=== PATIENT | female | born 1950 | race Caucasian/White ===

== ENCOUNTER → 2024-08-16 | Outpatient (CLI) | payer MEDICARE ==
--- NOTE | 2024-08-16 17:40 | HMCIMG ---
RIBS UNILAT 2V RT REASON: RIB PAIN TECHNIQUE: 4 views were obtained. FINDINGS: There is no evidence of fracture or dislocation. Underlying lung appears clear.. The soft tissues appear unremarkable. There is no evidence of a radiopaque foreign body. IMPRESSION: No acute findings.
== END | disposition home or self-care (01) ==
LOC: RAH 16:22
PROVIDERS: ATTEND Clinical Nurse Specialist Family Health
DX: R07.81 Pleurodynia (principal); M54.9 Dorsalgia, unspecified
CPT/HCPCS: 71100